=== PATIENT | female | born 2000 | race Caucasian/White ===

== ENCOUNTER 2018-10-09 17:54 | Emergency (ER) | payer MEDICAID, OTHER ==
[~2018-10-09] VITALS: Wt 60.0 kg
--- NOTE | 2018-10-09 19:13 | ERD ---
ER Documentation Chief Complaint Chief Complaint bib self, cc: epigastric pain x 1 month, HPI 18-year-old female accompanied by her mother present ED complaining of epigastric pain since 1 PM this afternoon. She described pain as burning-like sensation, and constant. She reports feeling nauseous, but denies vomiting. Denies fever or chills. Denies diarrhea. Denies dysuria. LMP 09/21/2017. Patient states that she has similar pains in the past. Patient denies eating spicy or greasy foods, denies taking NSAIDs. ROS All systems reviewed and are negative except as per history of present illness. Medications Home Meds Active Scripts Ranitidine Hcl* (Zantac*) 150 Mg Tablet, 150 MG PO BID PRN for EPIGASTRIC PAIN, #30 TAB Prov:REBEKA CONLEY. 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 Good expansion without retractions. Nontender. Lungs are clear to auscultate bilaterally with good tidal volume Heart: Regular rate and rhythm. No murmur, rub, or gallops heard Abdomen: Soft, epigastric tenderness and mild suprapubic tenderness without masses, guarding, or rebound. Bowel sounds are active. No hepatosplenomegaly Back: Without spinal or CVA tenderness Extremities: Full range of motion. Good strength bilaterally. No erythema, ecchymosis, or edema. Peripheral pulses are intact. Sensation intact Neuro: Alert and oriented 4, GCS 15. Results 24 hrs Laboratory Tests Test 10/09/18 19:15 1/25/19 19:17 Bedside Urine pH (LAB) 7.0 Bedside Urine Protein (LAB) Trace Bedside Urine Glucose (UA) Negative Bedside Urine Ketones (LAB) Trace Bedside Urine Blood Negative Bedside Urine Nitrite (LAB) Negative Bedside Urine Leukocyte Esterase (L Negative POC Beta HCG, Qualitative NEGATIVE Current Medications Medications Dose Sig/Gonzalo Start Time Status Last (Trade) Ordered Route PRN Stop Time Admin Dose Reason Admin 40 ml ONCE ONCE 10/09/18 DC 10/09/18 Miscellaneous PO 19:30 19:12 Medication 10/09/18 19:31 (Gi Cocktail (2)) Procedures/MDM 18-year-old female presents with epigastric pain times 1 day. On exam she has epigastric and tenderness. UA is negative for UTI, urine is negative. Patient does not have any right lower quadrant or right upper quadrant tenderness. Low suspicion for acute appendicitis, cholecystitis, pancreatitis, bowel obstruction, ectopic , ovarian torsion, or ruptured ovarian cyst. Likely her epigastric pain is due to gastritis. Patient given GI cocktail in the ED. Patient reports improvement of pain after GI cocktail. Patient appears well, stable for discharge and outpatient management. Medical decision making shared with patient and family. Education provided to patient and family. Patient and family expressed understanding of the plan. Medications on discharge: Omeprazole, ranitidine. Follow-up: Primary care provider in 2-3 days or return to ED if worse. Disclaimer: Inadvertent spelling and grammatical errors are likely due to EHR/dictation software use and do not reflect on the overall quality of patient care. Also, please note that the electronic time recorded on this note does not necessarily reflect the actual time of the patient encounter. Departure Diagnosis: Primary Impression: Epigastric pain Condition: Stable REBEKA CONLEY NP Oct 09, 2018 19:13
[2018-10-09] MEDS ORDERED: LIDOCAINE/MYLANTA 40 ML BTL PO ONE (19:30)
[2018-10-09] MEDS ORDERED: RANI150T35 PO (19:54)
[2018-10-09] MEDS ORDERED: OMEP20CA16 PO (19:54)
== END 2018-10-09 20:06 | disposition home or self-care (01) ==
LOC: FTE 17:54
DX: R10.13 Epigastric pain (principal); R40.2412 Glasgow coma scale score 13-15, at arrival to emergency department
CPT/HCPCS: 81003; 81025; Z7502; Z7610; 99282